=== PATIENT | male | born 1960 | race Caucasian/White ===

== ENCOUNTER 2023-09-17 14:06 | Emergency (ER) | payer OTHER, SELFPAY ==
[2023-09-17] VITALS (22 sets, daily range): BP systolic 134–158; BP diastolic 75–86; PULSE 82–103; RESP 13–21; TEMP 36.8; O2SAT 96–99; BMI 32.0
--- NOTE | 2023-09-17 14:29 | ED_ITS ---
HPI - General Adult General Chief complaint: Abdominal Pain Stated complaint: ABDOMINAL PAIN Time Seen by Provider: 09/17/23 14:09 Source: patient Mode of arrival: walk-in Limitations: no limitations History of Present Illness HPI narrative: Patient is a 63-year-old male who is presenting to the Emergency Room with chief complaint of right lower quadrant pain is been constant since Wednesday. 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 Patient had multiple episodes of dry heaves on Wednesday. No fever. Patient has been anorexic since Wednesday. Patient had small harder stool on Wednesday then a softer piece. Patient had a few Softer pieces of darker stool today. Patient has his gallbladder and appendix. Patient has no history kidney stone. Patient has no urinary frequency, urgency or burning. No testicular pain. No other acute complaints. Patient's rhythm is why. Patient had a appointment with his ginny michele in [place], and patient came to the Emergency Room and sent for evaluation. Patient looks comfortable. However when patient does any type of position change, he will have right lower quadrant pain . He feels ago muscle pull to the right lower quadrant. Then acute complaints. . All systems are negative except as noted/marked. All systems reviewed and otherwise negative. . Nurses note and vital signs reviewed and patient is not hypoxic. General: The patient appears well and in no apparent distress. Patient is resting comfortably on cart. Patient is not toxic, lethargic, or listless Skin: Warm, dry, no pallor noted. There is no rash noted. No petechiae, purpura. Head: Normocephalic, atraumatic Eye: Normal conjunctiva, no drainage, EOMI. PERRL Ears, Nose, Mouth, and Throat: oral mucosa is moist. Nares patent. Mouth without vesicles. Cardiovascular: Regular Rate and Rhythm, no murmur, gallop, rub Respiratory: Patient is in no distress, no accessory muscle use, lungs are c lear to auscultation, no wheezing, rales or rhonchi Back: non-tender, no CVA tenderness bilaterally to percussion. No CT LS midline pain GI: soft, No distention, moderate right lower quadrant tenderness to palpation, no suprapubic tenderness to palpation, no periumbilical pain to palpation, no flank pain bilateral, no midepigastric tenderness to palpation, otherwise no tenderness to palpation, no masses appreciated. Positive rebound; No guarding, or rigidity noted. No flank pain bilateral, No distention. NO peritoneal signs. Musculoskeletal: Patient has full range of motion of all of the extremities, no motor, sensory, or focal neurological deficits Neurological: A&O x3, normal speech Psychiatric: Cooperative Related Data Home Medications Medication Instructions Recorded Confirmed No Known Home Medications 09/17/23 09/17/23 Allergies Allergy/AdvReac Type Severity Reaction Status Date / Time No Known Drug Allergies Allergy Verified 09/17/23 14:15 PFSH PFS Social History Smoking status: Never smoker Exam Constitutional Vital Signs, click to edit/add: Last Vital Signs Temp 98.3 F 09/17/23 14:12 Pulse 90 09/17/23 17:20 Resp 18 09/17/23 17:20 BP 156/75 H 09/17/23 17:00 Pulse Ox 97 09/17/23 17:20 O2 Del Method Room Air 09/17/23 14:12 Course Vital Signs Vital signs: Vital Signs Temperature 98.3 F 09/17/23 14:12 Pulse Rate 83 09/17/23 14:12 Respiratory Rate 16 09/17/23 14:12 Blood Pressure 158/86 H 09/17/23 14:12 Pulse Oximetry 99 09/17/23 14:12 Oxygen Delivery Method Room Air 09/17/23 14:12 Temperature 98.3 F 09/17/23 14:12 Pulse Rate 90 09/17/23 17:20 Respiratory Rate 18 09/17/23 17:20 Blood Pressure 156/75 H 09/17/23 17:00 Pulse Oximetry 97 09/17/23 17:20 Oxygen Delivery Method Room Air 09/17/23 14:12 Medical Decision Making MDM Narrative Medical decision making narrative: Patient's abdominal exam does show moderate right lower quadrant tenderness palpation with positive rebound. Patient's pain is been constant since Wednesday with anorexia. Patient had nausea and vomiting on Wednesday, none yesterday or today. Patient will have IV labs, CT and lactic acid done. Differential diagnosis was gastroenteritis, kidney stone, appendicitis, cholecystitis, muscular pain, uurinary tract infection. 1500 Patient's troponin came back significantly elevated, EKG was done that shows no acute findings. 1530 patient is currently in CT of the abdomen and pelvis. Patient has no cardiac history. No history of heart attacks, stents. Patient's stated that he was having right upper lateral back pain several days ago, now is pain in the right lower quadrant. Patient has no history kidney stone. [address] of the abdomen and pelvis shows signs of suggest acute appendicitis with a small area of gas foci noted. No obvious signs of perforation. Patient's 2nd troponin improved compared to the 1st troponin. However we do not have a source of why patient's troponins were significantly e levated. I did discuss this case with Dr. Hollingsworth at approx 1720, Secondary to elevated troponins, we do not have the capabilities of performing echocardiogram today are cardiac consultation, so patient was recommended to be transferred for cardiac clearance for surgery. 1725 [address] did speak to Dr. Pena, the surgeon, and she stated patient is cardiac clearance for surgery. Patient was recommended to be transferred as well especially because medical hospitalist for medical admit patient due to elevated troponins. [address] report was discussed the patient and . All the incidental f indings of patient's CT report including lung nodule, gallstones, umbilical hernia, enlarged prostate were discussed with patient and a copy of the CT report was given to the patient and his as well. We are not able to admit patient to [facility] because we did tonight perform cardiac clearance for surgery per Dr. Hollingsworth. Options of going to [facility] or [facility] was discussed, patient is currently choosing [facility] at this time for transfer. 1810 I have spoken to the surgeon at [facility], Dr. Khan twice. He has been extremely helpful with transfer. I have also spoken to the anesthesiologist at [facility] as well. Patient will be going by private car, will drive. They were directly to [facility]. They will go to the main entrance, speak to the nursing supervisor pole yard, and the nursing supervisor pole yard will take patient up to surgery. I have spoken to the surgeon Dr. Khan and the anesthesiologist about patient's 2 troponins that were elevated with no chest pain, no shortness of breath, no etiology why he has elevated troponins. They are aware of this. They will be taking patient to surgery tonight, he will remain nothing by mouth.Patient has been given one dose of Zosyn. Patient was given 1 L of IV fluid. Patient will have a copy of the CT on a CD, along with the laboratory printed along with my Emergency Room chart in the EKG. No other recommendations were discussed. Patient and his were very thankful For this. Critical care time 35 minutes exclusive from separate billable procedures that were performed. The following was considered in the determination of critical care but not limited to the level of medical decision making, intensive cardiac and/or respiratory monitoring, frequent vital sign monitoring, evaluation of laboratory studies, evaluation of radiographic studies, oxygen monitoring, and constant monitoring and speaking to family at bedside Lab Data Lab results reviewed: Yes I reviewed the patient's lab results Labs: Lab Results 09/17/23 09/17/23 09/17/23 Range/Units 14:24 15:43 16:50 WBC 12.8 H (4.0-11.0) 10^3/uL RBC 5.08 (4.70-6.10) 10^6/uL Hgb 15.6 (14.0-18.0) g/dL Hct 46.6 (42.0-54.0) % MCV 91.7 (80.0-94.0) fL MCH 30.7 (25.9-34.0) pg MCHC 33.5 (29.9-35.2) g/dL RDW 13.2 (11.0-15.0) % Plt Count 235 (150-450) 10^3/uL MPV 10.6 (9.5-13.5) fL Neut % (Auto) 80.7 H (43.0-75.0) % Lymph % (Auto) 5.9 L (20.5-60.0) % [place] % (Auto) 11.6 (1.7-12.0) % Eos % (Auto) 1.1 (0.9-7.0) % Baso % (Auto) 0.3 (0.2-2.0) % Neut # (Auto) 10.3 H (1.4-6.5) 10^3/uL Lymph # (Auto) 0.8 L (1.2-3.8) 10^3/uL [place] # (Auto) 1.5 H (0.3-0.8) 10^3/uL Eos # (Auto) 0.1 (0.0-0.7) 10^3/uL Baso # (Auto) 0.0 (0.0-0.1) 10^3/uL Abs Immat Gran (auto) 0.05 H (0.00-0.03) 10^3/uL Imm/Tot Granulo (auto) 0.4 (0.0-0.5) % Sodium 139 (136-145) mmol/L Potassium 3.8 (3.5-5.1) mmol/L Chloride 100 (98-107) mmol/L Carbon Dioxide 27.2 (21.0-32.0) mmol/L Anion Gap 15.6 BUN 19.0 H (7.0-18.0) mg/dL Creatinine 1.15 (0.70-1.30) mg/dL Est GFR ( Amer) >60 (>=60) Est GFR (Non-Af Amer) >60 (>=60) BUN/Creatinine Ratio 16.5 Glucose 87 (74-106) mg/dL Lactate 1.1 (0.4-2.0) mmol/L Calcium 8.8 (8.5-10.1) mg/dL Total Bilirubin 0.8 (0.2-1.0) mg/dL AST 25 (15-37) U/L ALT 28 (16-63) U/L Alkaline Phosphatase 43 L (46-116) U/L Troponin I High Sens 464.5 H* 463.7 H* (4.0-76.1) pg/mL Total Protein 7.6 (6.4-8.2) g/dL Albumin 3.4 (3.4-5.0) g/dL Globulin 4.2 g/dL Albumin/Globulin Ratio 0.8 Lipase 17.0 (16.0-77.0) U/L Urine Color Yellow (YELLOW) Urine Clarity Clear (CLEAR) Urine pH 6.0 (5.0-9.0) Ur Specific [place] 1.010 (1.005-1.025) Urine Protein Trace (NEG/TRACE) mg/dL Urine Glucose (UA) Negative (NEGATIVE) mg/dL Urine Ketones >=80 A (NEGATIVE) mg/dL Urine Occult Blood Negative (NEGATIVE) Urine Nitrite Negative (NEGATIVE) Urine Bilirubin Moderate A (NEGATIVE) Urine Urobilinogen 1.0 (0.2-1.0) EU/dL Ur Leukocyte Esterase Negative (NEGATIVE) Urine RBC None seen (0-2) #/HPF Urine WBC None seen (NONE SEEN) #/HPF Ur Squamous Epith Cells Rare (NONE/RARE) #/LPF Urine Crystals None seen (None Seen) #/HPF Urine Bacteria None seen (NONE SEEN) #/HPF Urine Casts None seen (NONE SEEN) #/LPF Urine Mucus None seen (NONE SEEN) ECG Data Attestation: I personally reviewed and interpreted this ECG as follows: (EKG interpretation. Baseline no sinus rhythm at 86 beats a minute. No acute ST e levation, no acute ectopy. QTC of 431. Biphasic T-wave in V2 only.) Discharge Plan Discharge Chief Complaint: Abdominal Pain Clinical Impression: Acute appendicitis Patient Disposition: [facility] Time of Disposition Decision: 18:13 [facility] Condition: Serious Mode of Transportation: Private Vehicle
[2023-09-17 14:32] LABS: Basophils Percent Auto 0.3 % (0.2-2.0); Eosinophils Absolute Auto 0.1 10^3/uL (0.0-0.7); Eosinophils Percent Auto 1.1 % (0.9-7.0); Hematocrit 46.6 % (42.0-54.0); Hemoglobin 15.6 g/dL (14.0-18.0); Immature Granulocytes Abs Auto 0.05 10^3/uL (0.00-0.03); Immature Granulocytes Pct Auto 0.4 % (0.0-0.5); Lymphocytes Absolute Auto 0.8 10^3/uL (1.2-3.8); Lymphocytes Percent Auto 5.9 % (20.5-60.0); Mean Corpuscular HGB Conc 33.5 g/dL (29.9-35.2); Mean Corpuscular Hemoglobin 30.7 pg (25.9-34.0); Mean Corpuscular Volume 91.7 fL (80.0-94.0); Mean Platelet Volume 10.6 fL (9.5-13.5); Monocytes Absolute Auto 1.5 10^3/uL (0.3-0.8); Monocytes Percent Auto 11.6 % (1.7-12.0); Neutrophils Absolute Auto 10.3 10^3/uL (1.4-6.5); Neutrophils Percent Auto 80.7 % (43.0-75.0); Platelet Count 235 10^3/uL (150-450); Red Blood Count 5.08 10^6/uL (4.70-6.10); Red Cell Distribution Width 13.2 % (11.0-15.0); White Blood Count 12.8 10^3/uL (4.0-11.0)
[2023-09-17] MEDS: ONDANSETRON PF 4 MG/2 ML VIAL IV (14:36)
[2023-09-17 14:49] LABS: Alanine Aminotransferase 28 U/L (16-63); Albumin Globulin Ratio 0.8; Albumin Level 3.4 g/dL (3.4-5.0); Alkaline Phosphatase 43 U/L (46-116); Anion Gap 15.6; Aspartate Amino Transferase 25 U/L (15-37); BUN Creatinine Ratio 16.5; Bilirubin Total 0.8 mg/dL (0.2-1.0); Calcium 8.8 mg/dL (8.5-10.1); Carbon Dioxide 27.2 mmol/L (21.0-32.0); Chloride 100 mmol/L (98-107); Estimated GFR (African America >60 (>=60); Estimated GFR (Non-African Ame >60 (>=60); Globulin 4.2 g/dL; Glucose 87 mg/dL (74-106); Potassium 3.8 mmol/L (3.5-5.1); Sodium 139 mmol/L (136-145); Total Protein 7.6 g/dL (6.4-8.2)
[2023-09-17 14:52] LABS: Lactate/Lactic Acid 1.1 mmol/L (0.4-2.0)
[2023-09-17 14:54] LABS: Troponin I High Sensitivity 464.5 pg/mL (4.0-76.1)
--- NOTE | 2023-09-17 15:00 | ECG_ITS ---
The [facility] Test Date: 2023-09-17 Pat Name: ODILON PARDO Department: Room: - Gender: Male [employer] Operator: : 1960 Requested By: KELSIE HANSEN Order Number: [id number] Reading MD: CHARLES WHITTEN Measurements Intervals [place] Rate: 86 P: 34 [place]: 146 QRS: 82 QRSD: 92 T: 82 QT: 388 QTc: 431 Interpretive Statements 1100 Sinus rhythm 9110 normal ECG No previous ECG available for comparison Electronically Signed On 09-19-2023 16:50:09 EST by CHARLES WHITTEN
--- NOTE | 2023-09-17 15:30 | CT_ITS ---
The [address] [address] Patient Name: ODILON PARDO MRN: [id number] date: 1960 Sex: M Assigned Patient Location: ER Current Patient Location: ER Accession/Order Number: [id number] Exam Date: 09/17/2023 15:18 Report Date: 09/17/2023 15:57 At the request of: JAMES KRISHNA Procedure: CT abdomen pelvis w con EXAM: CT abdomen pelvis w con HISTORY: rlq pain COMPARISON: None TECHNIQUE: CT abdomen and CT pelvis studies were performed with the use of intravenous contrast. Multiple axial images were obtained. Reformatted coronal and sagittal images were obtained and reviewed. FINDINGS: Abdomen: Mild atelectatic and/or fibrotic changes in the lower lung graham. 6 mm nodular density in the right lower lobe posteriorly, laterally on series 3 axial image 3 most likely representing granuloma, fibrosis or atelectasis. Other possibility less likely though difficult to exclude entirely. Follow-up CT chest study in 3-6 months is recommended to assess stability. Views of the liver and spleen fail to demonstrate evidence of focal mass in either organ. A few gallstones in the gallbladder without wall thickening. No obvious pericholecystic fluid. Adrenal glands appear grossly unremarkable. Pancreas appears grossly unremarkable. Stomach appears grossly unremarkable. Bowel loops appear grossly unremarkable. Atherosclerotic calcifications within portions of the abdominal aorta. No evidence of aneurysm. No evidence of adenopathy in the retroperitoneum. No evidence of obstructive uropathy. 8 mm area of decreased attenuation in the lateral aspect of the left kidney most likely representing a complex proteinaceous and/or hemorrhagic cyst. Other possibility would be less likely. Nonemergent ultrasound may be considered even though the finding is small. If the finding is not well assessed on ultrasound, MRI abdomen study with and without intravenous gadolinium contrast medium considered, MRI abdomen study may also be considered instead of the ultrasound exam. Pelvis: Small fat filled periumbilical hernia without bowel content. Bladder appears grossly unremarkable. Prostate gland is moderately enlarged. A few calcifications compatible with phleboliths. Perirectal fat planes appear grossly intact. Bowel loops appear grossly unremarkable. Atherosclerotic calcification within a portion of the right iliac artery. No aneurysm. No evidence of adenopathy. Significant finding on this study is minimally enlarged appendix measuring 1.2 cm in diameter. Mild wall thickening. Small appendicolith noted in the appendix. Tiny focus of air on series 3 axial image 85 may be outside the lumen as suggested on series 6 sagittal image 95. Wall is ill-defined at this level. [id number] periappendiceal fatty stranding. Findings are compatible with acute appendicitis with possible appendiceal perforation. Fluid within the lumen of the appendix. No obvious fluid collection to suggest appendiceal or periappendiceal abscess. [id number] degenerative changes visualized lower dorsal spine with mild degenerative changes in the lumbar spine. Small area of sclerosis in the left femoral head compatible with bone island. CT/CT abdomen pelvis w con IMPRESSION: CT abdomen and CT pelvis studies demonstrate findings compatible with acute appendicitis, possibility of appendiceal perforation not excluded. Small soft tissue nodule in the right lower lobe. Follow-up CT chest study in 3-6 months is recommended to assess stability. Small area in the lateral left kidney most likely representing complex cyst. Other possibility difficult to exclude entirely. Follow-up ultrasound or MRI study as noted above may be considered for further evaluation. Gallstones in the gallbladder without wall thickening. Small fat filled periumbilical hernia. Moderately enlarged prostate gland. Electronically authenticated by: JUAN MOTA Date: 09/17/2023 15:57
[2023-09-17 16:18] LABS: Troponin I High Sensitivity 463.7 pg/mL (4.0-76.1)
[2023-09-17 17:18] LABS: Bilirubin Urine MODERATE (NEGATIVE); Blood Urine NEGATIVE (NEGATIVE); Clarity Urine CLEAR (CLEAR); Color Urine YELLOW (YELLOW); Glucose Urine UA NEGATIVE (NEGATIVE); Ketones Urine >=80 mg/dL (NEGATIVE); Leukocyte Esterase Urine NEGATIVE (NEGATIVE); Nitrite Urine NEGATIVE (NEGATIVE); Protein Urine TRACE mg/dL (NEG/TRACE)
[2023-09-17 17:35] LABS: Bacteria Urine NONE SEEN #/HPF (NONE SEEN); Cast Seen? NONE SEEN #/LPF (NONE SEEN); Crystals Seen? None Seen #/HPF (None Seen); Mucus Urine NONE SEEN (NONE SEEN); RBC Urine NONE SEEN #/HPF (0-2); Squamous Epithelial Cell Urine RARE #/LPF (NONE/RARE); WBC Urine NONE SEEN #/HPF (NONE SEEN)
[2023-09-17] MEDS: PIPERACILLIN SODIUM/TAZOBACTAM 3.375 GM in 0.9 % SODIUM CHLORIDE 50 ML IV (17:48)
[2023-09-17] MEDS: 0.9 % SODIUM CHLORIDE 1,000 ML 1000 ML IV (17:49)
== END 2023-09-17 18:32 | disposition short-term general hospital (02) ==
PROVIDERS: Emergency Provider Emergency Medicine; PCP Family Medicine
DX: K35.80 Unspecified acute appendicitis (principal)
CPT/HCPCS: 36415; 74177; 80053; 81001; 83605; 83690; 84484; 85025; 93005; 96365; 96375; 99285; Q9967